=== PATIENT | male | born 1960 | race Caucasian/White ===

== ENCOUNTER → 2021-10-06 | Outpatient (CLI) | payer BC ==
[2014-12-22 10:57] VITALS: BP 138/87
[~2021-10-06] MED LIST: AMLO-187 PO; AMLO2.5T5 PO; HYDR12.58 PO; HYDR50TA9 PO; LISI2.5T12 PO; SERT-267 PO; SERT25TA PO
--- NOTE | 2021-10-06 11:19 | KCIC ---
MRI BRAIN WO History:Reason: COGNITIVE DEFECITS LATE EFFECTS OF CEREBROVASCULAR DISEASE / Spl. Instructions: CV A 2010. New increaase in emotional liability and and anger issues. / History: Pt states this part of his routine physical because of his stroke hx. Technique: Multiplanar, multi sequential MR imaging was performed of the brain without contrast. Comparison: December 21, 2014 Findings: No acute infarct. No intracranial hemorrhage. No mass effect. No hydrocephalus. Left frontal paramedian encephalomalacia with gliosis, unchanged. Small focus of gradient hypointensi ty within the right thalamus, likely related to prior microhemorrhage. Imaged orbits are unremarkable. Imaged paranasal sinuses and mastoid air cells are clear. Impression: 1. No acute intracranial abnormality. 2. Left frontal paramedian encephalomalacia, unchanged. Electronically signed by: Terry Ochoa DO (10/06/2021 11:17 AM) [id number]
== END ==
LOC: KCIC MRI 08:12
PROVIDERS: ATTEND Family Medicine
DX: G93.89 Other specified disorders of brain (principal); I69.91 Cognitive deficits following unspecified cerebrovascular disease
CPT/HCPCS: 70551